=== PATIENT | female | born 1940 | race Caucasian/White ===

== ENCOUNTER 2025-03-21 05:30 | Inpatient (IN) | payer OTHER, SELFPAY ==
[2025-03-21] VITALS (15 sets, daily range): BP systolic 117–222; BP diastolic 50–96; PULSE 84–89; O2SAT 98; BMI 23.2; BMI 22.6
[2025-03-21 02:56] LABS: Hematocrit 29.0 % (37.0-47.0); Hemoglobin 8.7 g/dL (12.0-16.0); Mean Corp Hgb Conc. 30.0 g/dL (33.0-37.0); Mean Corpuscular Volume 65.5 fL (81.0-99.0); Nucleated Red Blood Cells % 0 %; Platelet Count 513 10^3/uL (130-400); Red Cell Dist. Width 20.2 % (11.5-14.5); Urine Character Clear (Clear)
[2025-03-21 03:11] LABS: Urine Red Blood Cell 0-2 /HPF (0-2); Urine Squamous Cell 0-2 /LPF (Few); Urine White Cell 0-2 /HPF (0-5)
[2025-03-21 03:18] LABS: ALT (SGPT) 18 U/L (0-35); AST (SGOT) 37 U/L (14-36); Albumin 4.5 g/dl (3.5-5.0); Alkaline Phosphatase 75 U/L (38-126); Blood Urea Nitrogen 20 mg/dl (7-17); Calcium 9.3 mg/dl (8.4-10.2); Carbon Dioxide 19 mmol/L (22-30); Chloride 100 mmol/L (98-107); Estimated Creatinine Clearance 60 ml/min; Glucose 111 mg/dl (70-99); Potassium 4.1 mmol/L (3.5-5.1); Sodium 131 mmol/L (135-145); Total Protein 8.0 g/dl (6.3-8.2); eGFR > 60.00
--- NOTE | 2025-03-21 03:38 | ED.GENMED ---
History of Present Illness
General
Chief Complaint: Musculo-Skeletal Complaint
Source: patient, family and ambulance crew
Exam Limitations: none
Time Seen by Provider: 03/21/25 02:18
Nursing documentation reviewed up to this point in time: agreed with
History of Present Illness
History of Present Illness:
84-year-old female with history of hypertension hyperlipidemia presents to the ER for evaluation of left hip pain. Patient reports that she had a minor fall 2 weeks ago and suffered a bruise to the left thigh. Initially had some pain but was able
to walk but has had progressively worse pain in the left hip to the point that she cannot bear weight and EMS was called to bring her to the hospital today. She denies any other injuries including denying specifically headache, neck pain, back pain
or pain in the upper extremities. She denies any other acute complaints.
Past History
Past History
ED Past Medical History: HTN and Hypercholesterolemia; Negative Asthma
ED Past Surgical History: None
Social History
Tobacco: Non-smoker
Alcohol: Occasional
Personal:
Living: with family
Employment: Retired
Review of Systems
Review of Systems
All Other Systems: ROS reviewed and negative except as documented in HPI and ROS
Constitutional: Denies fever
Respiratory: Denies trouble breathing
Cardiac: Denies chest pain
ABD/GI: Denies abdominal pain
: Denies flank pain
Musculoskeletal: Reports joint pain; Denies neck pain or back pain
Neurological: Denies dizzy or headache
Phy Exam
Physical Exam
Physical Exam:
General: Awake, alert, lying flat in bed appears mildly uncomfortable with movement
Head: Normocephalic, atraumatic
Eyes: Conjunctiva normal, pupils equal round reactive to light bilaterally
Throat: Airway intact, handling secretions
Neck: Trachea midline, no cervical spine tenderness
Back: No signs of trauma the back or flank, no tenderness in the thoracic or lumbar spine
Lungs: Clear to auscultation bilaterally, no wheezing, rales, rhonchi
Heart: Regular rate and rhythm, no murmurs, gallops, or rubs; no rib tenderness
Abd: Soft, non distended, nontender
Neuro: Grossly intact
Skin: Bruising to the left lateral thigh
Extremities: Patient has bruising to the left lateral thigh and tenderness over the greater trochanter; her left lower extremity shortened and externally rotated; strong distal pulses in the left lower extremity; rest of extremities appear
atraumatic; she has severe pain with any attempted range of motion of the left hip
Scores
Heart Failure Risk
Heart Failure Risk Score: Not Applicable
Heart Score for Chest Pain Patients
STEMI patient?: Not applicable
Withdrawal Assessment of Alcohol
Withdrawal Assessment Completed?: Not applicable
Course
Orders/Labs/Results
Orders:
Orders
03/21/25 02:13
CR Hip - LT w/wo Pel 2-3 Vw* Urgent
Comment:
Reason For Exam: left hip pain
Include a pelvis x-ray?: Yes
03/21/25 02:14
Electrocardiogram (*1) Urgent
Reason for Study: Hypertension, Benign
EKG- Treatment ONCE
03/21/25 02:46
Complete Blood Count/With Diff Urgent
Comprehensive Metabolic Panel Urgent
Urinalysis Reflex To Culture Urgent
Date Specimen was Collected: 03/21/25
Time Specimen was Collected: 02:43
Urine Microscopic Reflex Cult Urgent
03/21/25 03:40
Type+Screen Urgent
ORTHOPEDIC CONSULT Urgent
Consulting Provider: Kunal Vinson
Was physician already notified: Yes
B12 [Vitamin B12] Urgent
Ferritin Urgent
Folate Urgent
Iron Urgent
Reticulocyte Count Urgent
Total Iron Binding Urgent
03/21/25 03:47
Labetalol HCl [Trandate] 10 mg IV NOW STA
Morphine Sulfate 2 mg IV NOW STA
03/21/25 Breakfast
NPO
Allow oral meds: No
Allow clear liquids: No
Abnormal Lab Results
03/21/25
02:46
WBC 11.4 H 10^3/uL
(4.8-10.8)
Hgb 8.7 L g/dL
(12.0-16.0)
Hct 29.0 L %
(37.0-47.0)
MCV 65.5 L fL
(81.0-99.0)
MCH 19.6 L pg
(27.0-31.0)
MCHC 30.0 L g/dL
(33.0-37.0)
RDW 20.2 H %
(11.5-14.5)
Plt Count 513 H 10^3/uL
(130-400)
Absolute Neuts (auto) 9.0 H 10^3/uL
(1.4-6.5)
Absolute Lymphs (auto) 1.1 L 10^3/uL
(1.2-3.4)
Absolute Monos (auto) 1.2 H 10^3/uL
(0.1-0.6)
Neutrophils % 78.9 H %
(42.2-75.2)
Lymphocytes % 9.7 L %
(20.5-51.1)
Monocytes % 10.2 H %
(1.7-9.3)
Sodium 131 L mmol/L
(135-145)
Carbon Dioxide 19 L mmol/L
(22-30)
BUN 20 H mg/dl
(7-17)
Glucose 111 H mg/dl
(70-99)
AST 37 H U/L
(14-36)
Urine Ketones 2+ A
(Negative)
Ur Occult Blood Reflex 1+ A
(Negative)
Urine Albumin (Reflex) 2+ A
(Neg - Trace)
03/21/25 02:46
03/21/25 02:46
Vital Signs
Initial and Last Documented VS:
Initial Vital Signs
Temp Pulse Resp BP Pulse Ox
36.6 C 79 16 222/96 97
03/21/25 01:59 03/21/25 01:59 03/21/25 01:59 03/21/25 01:59 03/21/25 01:59
Last Documented Vital Signs
Temp Pulse Resp BP Pulse Ox
36.6 C 79 16 222/96 96
03/21/25 01:59 03/21/25 01:59 03/21/25 01:59 03/21/25 02:01 03/21/25 03:40
MDM/Problems Addressed
Differential Diagnosis Includes:
Fracture, contusion, dislocation, bursitis
MDM/Problems Addressed:
84-year-old female presents for evaluation of left hip pain as described above. Leg is shortened and externally rotated. No other injuries noted. She is hypertensive suspect from pain. Rest of vitals acceptable. Labs were sent off including a
CBC which shows anemia�possibly related to hematoma, denies GI bleeding. Added iron studies and reticulocyte count. Chemistry no clinically significant abnormalities. Urinalysis bland. Hip x-ray reviewed by me shows left hip fracture. Discussed
case with orthopedist will remain n.p.o. with plan for likely OR later today. Discussed case with hospitalist for admission.
Acute Exacerbation and/or Progression of Chronic Illness:
Acutely hypertensive likely at least in part pain related�treated pain and also given labetalol to treat hypertension
Acute Exacerbation and/or Progression of Chronic Illness: HTN
*Radiology
Radiology exam reviewed: preliminary read by ED provider
*Pulse Oximetry
SaO2: 96
Oxygen Mode of Delivery: Room air
Patient hypoxic: no (96%)
*EKG
Interpreted by ED Provider?: Yes
Heart Rate: 79
Rate: normal
Rhythm: sinus
Maiden: left axis deviation
Interval: normal interval
QRS Pattern: normal QRS
Ischemia: no ischemia
*Critical Care Note
Total Time (30-74mins, 75-104mins- exclusive of procedures): Not Applicable
Data Reviewed
Source: patient, records, family and ambulance crew
Patient Management
Discussion with other providers: Hospitalist (Discussed with hospitalist) and Jalousies Installer (Discussed with orthopedist)
Escalation/DeEscalation of care consider admission/obs:
Admission indicated
ED Attending Note
-
Portions of this chart may have been created with voice recognition software.� Occasional wrong word or��sound alike� substitutions may have occurred due to the inherent limitations of voice recognition software.
Discharge Plan
Departure
Patient Disposition: Admit
Date of Disposition: 03/21/25
Time of Disposition: 03:38
Admit to doctor: Brijesh
Presentation/result/management discussed w/ accepting MD/DO: Hospitalist
Discharge Problem:
Closed fracture of left hip, Anemia, Hypertension
Prescriptions:
No Action
atorvastatin 20 MG tablet
20 mg PO DAILY
amlodipine [Norvasc] 5 MG tablet
5 mg PO DAILY
valsartan 320 MG tablet
320 mg PO DAILY
hydrochlorothiazide 25 MG tablet
25 mg PO DAILY
Interventions
Interventions:
*Risk Screen - Suicide Last Done: 03/21/25 02:05
*General Assessment Last Done: 03/21/25 02:05
*Neglect/Abuse Screening Last Done: 03/21/25 02:05
*ED- Fall Risk Assessment Last Done: 03/21/25 02:05
*ED COVID-19 Vaccine History Last Done: 03/21/25 02:05
ED-Musculoskeletal Assessment Last Done: 03/21/25 02:08
Discharge Date and Time
Print Language: COOK ISLANDER
[2025-03-21] MEDS: TRANDATE 10 MG IV (04:11)
[2025-03-21] MEDS: MORPHINE SULFATE 2 MG IV ×2 (04:12→06:16)
--- NOTE | 2025-03-21 04:15 | HPS.HSE ---
Family Physician
-
Family Physician:
Chief Complaint
-
Left leg pain
History of Present Illness
This is a 84-year-old female with past medical history only notable for hypertension presenting to the emergency department especially HTN and worsening left leg pain. She was found to have hip fracture in the ED.
Patient reported that approximately over 2 weeks ago she had a slip and fall in the kitchen. She did landed on her sacrum. Initially she was able to get up without much pain or difficulty. However as time progressed she started noticing left hip
pain with mild radiation down the left leg. She denies any swelling. Daughter reported seeing a large bruise few weeks ago after a fall which has since resolved. Patient denies any numbness or tingling. She reports pain with any attempted
ambulation at this time.
According to daughter patient does not always take her blood pressure medications. She has had uncontrolled blood pressure for many years.
In the emergency department patient was hypertensive to 220s over 90, blood pressure was 79 respiratory was 16 we did temp of 98. ECG with normal sinus rhythm at a rate of 79 and unchanged from prior.
Hip x-ray shows a left femoral neck fracture nondisplaced.
CBC notable for hemoglobin of 8.7 with MCV of 65 and a normal blood count. Electrolytes BUN and creatinine were mostly stable except for a sodium of 131.
Medical History
Past Medical History
Past Medical History: Reports HTN and Hypercholesterolemia
Past Surgical History: Reports None
Social History
Tobacco: Former Smoker
Alcohol: Occasional
Drug: None
Personal:
Living: With Family
Family History
Family History: Not pertinent
Allergies / Home Medications
Allergies reflects when Allergies were last updated in [employer].
Home Medications with original date entered in [employer]
Allergy/Medication List:
Allergies
Allergy/AdvReac Type Severity Reaction Status Date / Time
No Known Allergies Allergy Unverified 04/21/14 15:15
Home Medications
amlodipine 5 mg tablet (Norvasc) 5 mg PO DAILY 06/26/16
atorvastatin 20 mg tablet 20 mg PO DAILY 06/26/16
valsartan 320 mg tablet 320 mg PO DAILY 06/26/16
Review of Systems
-
Constitutional: Reports No Symptoms
EENT: Reports No Symptoms
Respiratory: Reports No Symptoms
Cardiac: Reports No Symptoms
Abdomen/GI: Reports No Symptoms
: Reports No Symptoms
Musculoskeletal: Reports Joint Pain
Skin: Reports No Symptoms
Neurological: Reports No Symptoms
Endocrine: Reports No Symptoms
Hematologic/Lymphatic: Reports No Symptoms
Psych: Reports No Symptoms
Physical Exam
Vital Signs
Vital Signs
Temp Pulse Resp BP Pulse Ox
98 F 76 16 212/79 96
03/21/25 01:59 03/21/25 04:11 03/21/25 01:59 03/21/25 04:11 03/21/25 03:40
Physical Exam
General: Well Developed, Well Nourished and No Apparent Distress
HEENT: NormoCephalic, Moist mucous membranes and Atraumatic
Respiratory: Clear
Cardiac: S1/S2 and Regular Rhythm; No Murmur or Rub
GI: Soft, Non Tender, Non Distended and Normal Bowel Sounds; No Organomegaly
Rectal: Deferred by Provider
Genito-urinary: Deferred by me
Musculoskeletal: No Clubbing, No Cyanosis and No Edema
Skin: No Rash
Neuro: AO x 3 and Nonfocal/grossly intact
Psych: Calm
Laboratory Results
-
03/21/25 02:46
03/21/25 02:46
Laboratory Results
Total Bilirubin 1.0 mg/dl (0.2-1.3) 03/21/25 02:46
AST 37 U/L (14-36) H 03/21/25 02:46
ALT 18 U/L (0-35) 09/27/25 02:46
Alkaline Phosphatase 75 U/L (38-126) 03/21/25 02:46
Data Reviewed
-
Diagnostic Radiology: Image Personally Visualized and interpreted
Lab Data: Labs Reviewed by me
Old Records: Reviewed
Impression/Plan
-
IMPRESSION:
84 female with HTN presenting with left hip pain and found to have an occult left hip fracture (femoral neck). Likely due to a fall she had a few weeks earlier. She is hypertensive but otherwise stable. She is neurologically and vascularly
intact.
PLAN:
Hip fracture
- admit to telemetry
- pain control and antiemetics
- npo for now except meds
- no thinners,
- fracture b/s and retention protocol
- PT consult
- Surgery aware and patient to OR in am.
Uncontrolled HTN - although pain could be laying a role, daughter believes long standing uncontrolled bp 2/2 intermittent compliance
- will give her oral valsartan and norvasc early today
- prn hydralazine
Anemia - Microcytic anemia, Hgb 8.7, MCV 65. Likely chronic iron deficiency. Bruise near hematoma unlikely to explain degree of microcytic anemia.
- iron panel/ferritin ordered, retic
- type and screen as patient possibly may need post op transfusion
- folate/b12 ordered
DVT PPX - SCDs pending surgery
Code status - DNR
[2025-03-21] MEDS: DIOVAN 320 MG PO (04:50)
[2025-03-21 04:54] LABS: Reticulocyte Count 1.3 % (0.4-2.8)
[2025-03-21 05:22] LABS: Iron 29 ug/dl (37-170)
[2025-03-21 05:32] LABS: Total Iron Binding Capacity 434 ug/dl (265-497)
[2025-03-21 05:58] LABS: Ferritin 16.1 ng/ml (11.1-264.0)
[2025-03-21] MEDS: D5/0.9% SODIUM CHLORIDE 1000 IV (06:18)
[2025-03-21 06:30] LABS: Folate 11.0 ng/ml (2.76-20); Vitamin B12 655 pg/ml (239-931)
--- NOTE | 2025-03-21 08:00 | W.PN.UPDATE ---
Update Note
Progress Note Update
Full orthopedic consult dictated:
Patient needs left hip hemiarthroplasty so NPO, ance/txa synchronizer to OR
[2025-03-21 08:42] LABS: Hematocrit 24.4 % (37.0-47.0); Hemoglobin 7.4 g/dL (12.0-16.0)
[2025-03-21] MEDS: LIPITOR 20 MG PO (08:52)
[2025-03-21] MEDS: TYLENOL 650 MG PO ×3 (08:52→20:59)
--- NOTE | 2025-03-21 12:04 | W.PN.HOSP.TC ---
Today's Communication/Plan
-
NPO for OR
1 unit PRBC
Assessment / Plan
Assessment / Plan
IMPRESSION:
84 female with HTN presenting with left hip pain and found to have an occult left hip fracture (femoral neck). Likely due to a fall she had a few weeks earlier. She is hypertensive but otherwise stable. She is neurologically and vascularly
intact.
PLAN:
Hip fracture
- admit to telemetry
- pain control and antiemetics
- NPO for OR
- PT post op
- Asa 325 postop
Uncontrolled HTN - although pain could be laying a role, daughter believes long standing uncontrolled bp 2/2 intermittent compliance
- TRAILER TECHNICIAN Valsartan, Amlodipine
HLD - TRAILER TECHNICIAN Statin
Anemia -
- Hg 7.4 this AM
- 1 unit PRBC during OR
DVT PPX - SCDs pending surgery
Code status - DNR
Anticipated Discharge: 24 - 48 hours
Subjective/Interval History
-
Date of Service: March 21, 2025
seen before surgery
pain in hip
no chest pain or shortness of breath
Objective Data
-
Labs:
Laboratory Results
03/21/25 03/21/25
02:46 08:24
WBC 11.4 H
Hgb 8.7 L 7.4 L
Hct 29.0 L 24.4 L
Plt Count 513 H
Sodium 131 L
Potassium 4.1
Chloride 100
Carbon Dioxide 19 L
BUN 20 H
Creatinine 0.6
Glucose 111 H
Calcium 9.3
Total Bilirubin 1.0
AST 37 H
ALT 18
Alkaline Phosphatase 75
Vital Signs:
Vital Signs
Temp Pulse Resp BP Pulse Ox
98.1 F 79 16 173/66 100
03/21/25 11:48 03/21/25 11:48 03/21/25 11:48 03/21/25 11:48 03/21/25 08:00
Review of Systems
-
History Source: Patient
All other systems: Reviewed and negative
Physical Exam
-
General: No Apparent Distress
HEENT: PERRLA
Respiratory: Clear to Auscultation; Negative Wheezes
Cardiac: Regular Rhythm and S1/S2
GI: Soft and Nontender
Musculoskeletal: No Edema
Skin: Warm and Dry; Negative Rash
Neuro: AO x 3
Psych: Calm
Data Reviewed
-
Diagnostic Radiology: Report Reviewed by me
Labs: Labs Reviewed by me
[2025-03-21] MEDS: TYLENOL PO (13:19)
--- NOTE | 2025-03-21 14:52 | W.IMMPOSTOP ---
Surgical Immed Post Op Note
-
Primary Surgeon: Alisson
Assisting Surgeon: Jas Higgins PA-C
Pre-op Diagnosis: Left hip femoral neck fracture
Post-op Diagnosis: Same
Procedure Performed: Left hip femoral neck fracture
Anesthesia Type: General
Specimen / Cultures: None
Estimated Blood Loss: 20cc
Complications: None
Operative Findings: Dictated [id number]
Plan:
- WBAT
- ASA 325 for 30 days if there are no contraindications
- PT/ OT
[2025-03-21 15:05] LABS: Hemoglobin 8.2 g/dL (12.0-16.0)
[2025-03-21] MEDS: NSS 1000 IV (15:15)
--- NOTE | 2025-03-21 15:30 | PTCARENOTE ---
Pt received from the PACU via bed. Transport was w/o incident. Pt is AAOx3, HRR, lungs are clear/decreased. VSS, Pt is afebrile. Pt is in NSR on surveillance system monitor. Left hip with Antibacterial dressing intact, scant amount of bloody drainage noted. Pt
denies pain or nausea at this time. Pt instructed on plan of care. Pt and Pt's family verbalized understanding of instructions. Call denny is within reach.
[2025-03-21] MEDS: ASPIRIN 325 MG PO (18:07)
[2025-03-21] MEDS: BACTROBAN 2% OINTMENT 1 APPLIC NASAL (20:58)
[2025-03-21] MEDS: ANCEF 5 IV (20:58)
[2025-03-21] MEDS: COLACE 100 MG PO (20:59)
[2025-03-21] MEDS: SENOKOT 17.2 MG PO (20:59)
[2025-03-21] MEDS: ROXICODONE 5 MG PO (21:03)
[2025-03-22] VITALS (8 sets, daily range): BP systolic 126–168; BP diastolic 57–84; PULSE 91
[2025-03-22] MEDS: D5/0.9% SODIUM CHLORIDE IV (01:51)
[2025-03-22] MEDS: TYLENOL PO (01:51)
[2025-03-22] MEDS: ANCEF 5 IV (04:35)
[2025-03-22] MEDS: TYLENOL 650 MG PO ×5 (04:35→20:00)
--- NOTE | 2025-03-22 07:36 | W.PN.ORTHO ---
Today's Communication / Plan
-
PT/OT
Aspirin for DVT/mechanical devices for DVT prophylaxis
Weightbearing as tolerated with walker
Posterior hip precautions
Skin clips removal 2 weeks postop
Follow-up with orthopedics 1 month postop
long term facility once medically stable
Assessment
.
Distal Motor Intact: Yes
Dressing:
Clean, dry and intact.
Plan
.
Surgery / Date: L hip hemiarthroplasty 03/21 [place]
DVT Prophylaxis: Aspirin
Activity:
Out of bed.
PT/OT
Discharge Plan: SNF
Subjective
.
.:
Patient resting comfortably.
Vital Signs and Labs
.
Vital Signs and Labs:
Temp Pulse Resp BP Pulse Ox
98.7 F 88 20 165/78 95
03/22/25 03:00 03/22/25 03:00 03/22/25 03:00 03/22/25 03:00 03/22/25 03:00
Non-invasive Hgb result: 10.3
[2025-03-22 08:02] LABS: Hematocrit 24.8 % (37.0-47.0); Hemoglobin 7.5 g/dL (12.0-16.0); Mean Corp Hgb Conc. 30.2 g/dL (33.0-37.0); Mean Corpuscular Volume 68.3 fL (81.0-99.0); Red Cell Dist. Width 20.6 % (11.5-14.5)
[2025-03-22 08:24] LABS: Blood Urea Nitrogen 17 mg/dl (7-17); Calcium 8.3 mg/dl (8.4-10.2); Carbon Dioxide 23 mmol/L (22-30); Chloride 102 mmol/L (98-107); Estimated Creatinine Clearance 57 ml/min; Glucose 102 mg/dl (70-99); Magnesium 2.1 mg/dl (1.6-2.3); Potassium 3.6 mmol/L (3.5-5.1); Sodium 130 mmol/L (135-145); eGFR > 60.00
[2025-03-22 08:26] LABS: Platelet Count 324 10^3/uL (130-400)
--- NOTE | 2025-03-22 08:42 | W.PN.HOSP.TC ---
Today's Communication/Plan
-
IV iron
monitor CBC
likely SNF tomorrow
Assessment / Plan
Assessment / Plan
IMPRESSION:
84 female with HTN presenting with left hip pain and found to have an occult left hip fracture (femoral neck). Likely due to a fall she had a few weeks earlier. She is hypertensive but otherwise stable. She is neurologically and vascularly
intact.
PLAN:
Left hip femoral neck fracture
-s/p OR 03/21/25
-appreciate orthopedics
-Asa 325 for DVT PPx
-PT/OT, WBAT, SNF
-Skin clips removal 2 weeks postop
-Follow-up with orthopedics 1 month postop
Post-Op Anemia
Acute blood Loss anemia
-s/p 1 unit PRBC during OR
-Hg 7.5 this AM
-CLAUDIO - start IV Iron
-repeat CBC tomorrow
Essential HTN
- TAILERCPA Valsartan, Amlodipine
HLD - TAILERCPA Statin
Mild hyponatremia
-stop fluids
-fluid restriction
DVT PPX - ASa 325
Code status - DNR
Anticipated Discharge: 24 - 48 hours
Subjective/Interval History
-
Date of Service: March 22, 2025
Objective Data
-
Labs:
Laboratory Results
03/22/25
06:52
WBC 12.3 H
Hgb 7.5 L
Hct 24.8 L
Plt Count 324 D
Sodium 130 L
Potassium 3.6
Chloride 102
Carbon Dioxide 23
BUN 17
Creatinine 0.6
Glucose 102 H
Calcium 8.3 L
Vital Signs:
Vital Signs
Temp Pulse Resp BP Pulse Ox
98.3 F 91 16 168/73 95
03/22/25 07:30 03/22/25 07:30 03/22/25 07:30 03/22/25 07:30 03/22/25 07:30
I&O
03/21/25 03/22/25 03/23/25
06:59 06:59 06:59
Intake Total 2710 / 2710
Balance 2710 / 2710
[2025-03-22] MEDS: DIOVAN 320 MG PO (09:27)
[2025-03-22] MEDS: COLACE 100 MG PO ×2 (09:27→20:00)
[2025-03-22] MEDS: ASPIRIN 325 MG PO (09:27)
[2025-03-22] MEDS: LIPITOR 20 MG PO (09:27)
[2025-03-22] MEDS: SENOKOT 17.2 MG PO ×2 (09:28→20:00)
[2025-03-22] MEDS: NORVASC 5 MG PO (09:28)
[2025-03-22] MEDS: BACTROBAN 2% OINTMENT 1 APPLIC NASAL ×2 (09:28→20:00)
[2025-03-22] MEDS: ROXICODONE 5 MG PO ×2 (09:30→17:51)
--- NOTE | 2025-03-22 10:14 | CM ---
CM following re: discharge planning.
Reviewed pt's chart, met with pt and daughter Joyce at bedside.
Pt is an 84 year old female, admitted with primary dx of hip fx, POD#1 L hip hemiarthroplasty.
Pt reports she lives with 2SH, 1 step to enter, has 2 supportive children. 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 No DME, VN or SNF history. Pt stated this is her only hospitalization.
PT and OT evaluations noted - SNF level of care recommended. Both pt and her daughter Joyce are aware, expressed their agreement. A list of SNFs provided. Following SNFs preferred: [facility], [facility] SN[facility], [facility]. A referral to
above SNFs made. Awaiting for determination.
PCP: Casie Mariee
Pharmacy: [facility]
D/C plan: preferred SNF.
CM will follow to assist pt with discharge to a preferred SNF
[2025-03-22] MEDS: FERRLECIT 110 MG IV (13:10)
[2025-03-23] MEDS: TYLENOL 650 MG PO ×4 (00:10→12:50)
[2025-03-23 02:55] VITALS: BP 160/80
[2025-03-23 07:33] LABS: Hematocrit 24.5 % (37.0-47.0); Hemoglobin 7.7 g/dL (12.0-16.0); Mean Corp Hgb Conc. 31.4 g/dL (33.0-37.0); Mean Corpuscular Volume 68.4 fL (81.0-99.0); Platelet Count 343 10^3/uL (130-400); Red Cell Dist. Width 20.9 % (11.5-14.5)
[2025-03-23 07:45] VITALS: BP 164/68
[2025-03-23 08:04] LABS: Blood Urea Nitrogen 17 mg/dl (7-17); Calcium 8.0 mg/dl (8.4-10.2); Carbon Dioxide 23 mmol/L (22-30); Chloride 103 mmol/L (98-107); Estimated Creatinine Clearance 49 ml/min; Glucose 87 mg/dl (70-99); Potassium 3.6 mmol/L (3.5-5.1); Sodium 131 mmol/L (135-145); eGFR > 60.00
[2025-03-23] MEDS: COLACE 100 MG PO (08:20)
[2025-03-23] MEDS: SENOKOT 17.2 MG PO (08:20)
[2025-03-23] MEDS: ASPIRIN 325 MG PO (08:20)
[2025-03-23] MEDS: LIPITOR 20 MG PO (08:21)
[2025-03-23] MEDS: NORVASC 5 MG PO (08:21)
[2025-03-23] MEDS: DIOVAN 320 MG PO (08:22)
--- NOTE | 2025-03-23 09:33 | W.PN.ORTHO ---
Today's Communication / Plan
-
Appreciate the primary team, continue treatment
Dispo likely SNF, appreciate CM
Continue WBAT B/L LEs on walker
PT/OT, THPs x 6 weeks
ASA 325mg daily x 4 weeks for DVT ppx
Dressing to remain 7-10 days
Pain control, avoid narcotic delirium
Ninfa out 2 weeks (SNF or office)
If ninfa out at SNF outpatient Ortho follow-up in 4 weeks
Ortho to sign off for now, please reengage with any pertinent questions as necessary
Assessment
.
Distal Motor Intact: Yes
Dressing:
Clean, dry and intact. mild strikethrough, contained
Assessment:
POD#2 Left hip Michael
Overall doing/feeling well
Calf soft, nontender
Plan
.
Surgery / Date: Left Hip Michael Mar 19 ([place])
DVT Prophylaxis: Aspirin
Activity:
Out of bed. WBAT B/L LEs on walker
PT/OT, THPs x 6 weeks
Discharge Plan: SNF (appreciate CM) and Other
Subjective
.
.:
Patient resting comfortably. Pleasantly confused (possibly due to Oxy). No complaints re: Left hip
Vital Signs and Labs
.
Vital Signs and Labs:
Lab Results
03/23/25 06:31
03/23/25 06:31
Temp Pulse Resp BP Pulse Ox
99.5 F 85 16 134/38 96
03/23/25 07:45 03/23/25 08:21 03/23/25 07:45 03/23/25 08:21 03/23/25 07:45
Non-invasive Hgb result: 9.3
--- NOTE | 2025-03-23 09:59 | W.PN.HOSP.TC ---
Today's Communication/Plan
-
DC to SNF today
Assessment / Plan
Assessment / Plan
IMPRESSION:
84 female with HTN presenting with left hip pain and found to have an occult left hip fracture (femoral neck). Likely due to a fall she had a few weeks earlier. She is hypertensive but otherwise stable. She is neurologically and vascularly
intact.
PLAN:
Left hip femoral neck fracture
-s/p OR 03/21/25
-appreciate orthopedics
-Asa 325 for DVT PPx
-PT/OT, WBAT, SNF
-Skin clips removal 2 weeks postop
-Follow-up with orthopedics 1 month postop
Post-Op Anemia
Acute blood Loss anemia
-s/p 1 unit PRBC during OR
-Hg stable
-CLAUDIO - s/p IV iron, start iron pills
-repeat CBC one week
Essential HTN
- HEAD OPERATOR SULFIDE Valsartan, Amlodipine
HLD - HEAD OPERATOR SULFIDE Statin
Mild hyponatremia
-stop fluids
-fluid restriction
DVT PPX - ASa 325
Code status - DNR
Anticipated Discharge: Today
Subjective/Interval History
-
Date of Service: March 23, 2025
patient was confused this morning, now clear
Objective Data
-
Labs:
Laboratory Results
03/23/25
06:31
WBC 11.0 H
Hgb 7.7 L
Hct 24.5 L
Plt Count 343
Sodium 131 L
Potassium 3.6
Chloride 103
Carbon Dioxide 23
BUN 17
Creatinine 0.7
Glucose 87
Calcium 8.0 L
Vital Signs:
Vital Signs
Temp Pulse Resp BP Pulse Ox
99.5 F 85 16 134/38 96
03/23/25 07:45 03/23/25 08:21 03/23/25 07:45 03/23/25 08:21 03/23/25 07:45
I&O
03/22/25 03/23/25 03/24/25
06:59 06:59 06:59
Intake Total 2710 / 2710 720 / 720
Balance 2710 / 2710 720 / 720
Review of Systems
-
History Source: Patient
All other systems: Reviewed and negative
Physical Exam
-
General: No Apparent Distress
HEENT: PERRLA
Respiratory: Clear to Auscultation; Negative Wheezes
Cardiac: Regular Rhythm and S1/S2
GI: Soft and Nontender
Musculoskeletal: No Edema
Skin: Warm and Dry; Negative Rash
Neuro: AO x 3
Psych: Calm
Data Reviewed
-
Diagnostic Radiology: Report Reviewed by me
Labs: Labs Reviewed by me
--- NOTE | 2025-03-23 10:11 | W.DS.TRANS ---
DC Summary - Stain Sprayer
-
Discharge Instructions:
Discharge Diagnosis/Procedures left hip femoral neck fracture status post OR
Diet Regular
Activity As tolerated
Additional Activity WBAT
Driving Restrictions No driving
Bathing Restrictions None
Blood Work CBC in one week
Other Services PT,OT
Instructions:
Stand-Alone Forms:
Changes to Home Medications: Yes
Discharge Medications:
DC Medications w/original date entered in [employer]
amlodipine 5 mg tablet (Norvasc) 5 mg PO DAILY 06/26/16
atorvastatin 20 mg tablet 20 mg PO DAILY 06/26/16
valsartan 320 mg tablet 320 mg PO DAILY 06/26/16
acetaminophen 325 mg tablet 650 mg (2 x 325 mg) PO Q4H PRN mild pain #30 tabs 03/23/25
aspirin 325 mg tablet 325 mg PO DAILY #28 tabs 03/23/25
ferrous sulfate 325 mg (65 mg iron) tablet (Feosol) 325 mg PO Q OTHER DAY #30 tabs 03/23/25
oxycodone 5 mg tablet 5 mg PO Q4HPRN PRN moderate/severe pain #15 tabs 03/23/25
polyethylene glycol 3350 17 gram oral powder packet (Miralax) 17 g PO DAILY #30 ea 03/23/25
Home Medication Changes
Take Tylenol as needed for mild pain, Oxycodone for moderate or severe pain
You are started on Iron pills for anemia, your labs will be rechecked in one week. Start taking every other day, can increase to daily if tolerate
Take Miralax daily to prevent constipation
Take Aspirin 325mg daily x 4 weeks to prevent blood clots
Pending Results: No
[2025-03-23 10:15] VITALS: BP 132/70; PULSE 98; O2SAT 99
[2025-03-23 10:16] VITALS: BP 132/70; PULSE 97; O2SAT 99
--- NOTE | 2025-03-23 10:48 | CM ---
Addendum entered by Shannan Chew 03/23/25 12:50:
Auth confirmed with [employer] via phone; auth [id number] 03/23/25-03/27/25 next review date [phone]. Ambulance auth is [id number] with [facility], plan for transfer at 16:30. CM will call to patient family to review IMM form. Patient for transfer to
SNF today.
Original Note:
Patient seen at bedside on . Following conversations with physician, nursing and patient spouse, daughter. CM called to Insurance to request auth. Patient accepted Bed at [facility]. CM will confirm ability to transfer when auth complete.
Patient will need report to be called to [phone]/fax report to [phone].
Plan; transfer to SNF when auth in place'
NPI Dr. Piña [id number]
NPI [facility] [id number]
[2025-03-23 11:33] VITALS: BP 130/73
[2025-03-23 11:46] LABS: COVID-19 Antigen Negative (Negative)
--- NOTE | 2025-03-23 12:07 | W.DCSUMMARY ---
Discharge Summary
Discharge Data
Date of Admission: 03/21/25
Date of Discharge: 03/23/25
-
Pending Results: No
Hospital Course
Discharging Physician : Dr. Kayce Kwok
Disposition : SNF
Primary care physician : Dr. Casie Mariee
Principal Discharge diagnosis : Left Hip Fracture s/p OR 03/21/25
Hospital Course :
Ms. Lela Burgos is a 84 yo woman with hx essential HTN status post fall 2 weeks ago presents to the ER with worsening left hip pain. Triage vitals significant for hypertension with SBP 220's. Hip X-Ray with left femoral neck fracture. Hg 8.7.
Patient was admitted to medicine with orthopedics consulting and she underwent surgery on 03/21/25. She did well post-op. She worked with PT and plan is for DC to SNF. She will follow up with Dr. Vinson in 2-4 weeks.
Blood pressures improved with pain control and she is kept on her home regimen at discharge.
Patient received 1 unit PRBC intra-op with stable Hg over past 24 hours on day of discharge. She received 1 dose IV iron, prescribed iron pills with plans for repeat CBC next week.
Patient had transient hospital acquired delirium morning of discharge that has resolved.
Time spent on discharge was 35 minutes.
Important imaging findings :
HIP X-RAY
IMPRESSION:
Postoperative left hip hemiarthroplasty.
Procedure findings :
Discharge Plan
-
Patient Disposition: Usp/SNF
Discharge Diagnosis/Procedures: left hip femoral neck fracture status post OR 03/21/25
Diet: Regular
Activity: As tolerated
Additional Activity: WBAT
Driving Restrictions: No driving
Bathing Restrictions: None
Blood Work: CBC in one week
Other Services: PT and OT
Activity Restrictions/Additional Instructions:
Lane out in 2 weeks (at SNF or office). If ninfa out at SNF then follow up with Ortho in 4 weeks (otherwise at 2 week lilli for staple removal)
Referrals:
Casie Mariee MD [Family Provider, Internal Medicine] - in less than 1 week
Kunal Vinson MD [Active, Orthopedics] - in two to four weeks
Additional Discharge Medication Instructions: Take Tylenol as needed for mild pain, Oxycodone for moderate or severe pain
You are started on Iron pills for anemia, your labs will be rechecked in one week. Start taking every other day, can increase to daily if tolerate
Take Miralax daily to prevent constipation
Take Aspirin 325mg daily x 4 weeks to prevent blood clots
Prescriptions:
New
aspirin 325 mg Tablet
325 mg PO DAILY Qty: 28 0RF
oxycodone 5 mg Tablet
5 mg PO Q4HPRN PRN (Reason: moderate/severe pain) Qty: 15 0RF
acetaminophen 325 mg Tablet
650 mg PO Q4H PRN (Reason: mild pain) Qty: 30 0RF
polyethylene glycol 3350 [Miralax] 17 gram powder in packet
17 g PO DAILY Qty: 30 0RF
ferrous sulfate [Feosol] 325 mg (65 mg iron) tablet
325 mg PO Q OTHER DAY Qty: 30 0RF
Continued
atorvastatin 20 MG tablet
20 mg PO DAILY
amlodipine [Norvasc] 5 MG tablet
5 mg PO DAILY
valsartan 320 MG tablet
320 mg PO DAILY
Discharge Orders:
Discharge Patient (As Directed); Ordered 03/23/25
Ordered By: Kayce Kwok
Discharge Date and Time
Print Language: OCCITAN
[2025-03-23] MEDS: FERRLECIT 110 MG IV (14:50)
[2025-03-23 15:45] VITALS: BP 141/63
== END 2025-03-23 16:45 | DRG 522 ==
LOC: 2 SOUTH 05:30
PROVIDERS: Physician Assistant Surgical; ADMITTING PHYSICIAN Internal Medicine; ATTENDING PHYSICIAN Student in an Organized Health Care Education/Training Program; CONSULT PHYSICIAN Orthopaedic Surgery; EMERGENCY PHYSICIAN Emergency Medicine; FAMILY PHYSICIAN Internal Medicine
PROC: 30233N1 Transfusion of Nonautologous Red Blood Cells into Peripheral Vein, Percutaneous Approach (ICD-10-PCS; 2025-03-21)
PROC: 0SRS0J9 Replacement of Left Hip Joint, Femoral Surface with Synthetic Substitute, Cemented, Open Approach (ICD-10-PCS; 2025-03-21)
DX: S72.002A Fracture of unspecified part of neck of left femur, initial encounter for closed fracture (principal); D62 Acute posthemorrhagic anemia; E87.1 Hypo-osmolality and hyponatremia; I10 Essential (primary) hypertension; W01.0XXA Fall on same level from slipping, tripping and stumbling without subsequent striking against object, initial encounter; Z66 Do not resuscitate; D50.9 Iron deficiency anemia, unspecified; E78.00 Pure hypercholesterolemia, unspecified; Z87.891 Personal history of nicotine dependence
CPT/HCPCS: 73502; 80048; 80053; 81003; 81015; 82607; 82728; 82746; 83540; 83550; 83735; 85014; 85018; 85025; 85027; 85045; 86850; 86900; 86901; 86920; 87811; 93005; 96374; 96375; 97110; 97116; 97162; 97166; 97530; 97535; 99285; C1713; C1776; J2916; P9016

== ENCOUNTER 2025-04-21 12:22 | Emergency (ER) | payer OTHER, SELFPAY ==
[2025-04-21] VITALS (17 sets, daily range): BP systolic 124–156; BP diastolic 63–97
--- NOTE | 2025-04-21 12:55 | ED.MUSCINJ ---
HPI-Injury
<Zafar Osuna PA-C - Last Filed: 04/21/25 15:49>
General
Chief Complaint: Musculo-Skeletal Complaint
Source: patient
Exam Limitations: none
Time Seen by Provider: 04/21/25 12:49
History of Present Illness-Injury
Initial Injury comments:
84-year-old female sent in from orthopedic office after she was noted to have a dislocated left hemiarthroplasty. She had a fracture left hip about a month ago and this was repaired with a hemiarthroplasty. She went for a follow-up visit today and
was noted to have a dislocation. She does not recall specific injury that did this but she notes increased pain over the past day or 2. No other complaints at this time
Past History
<Zafar Osuna PA-C - Last Filed: 04/21/25 15:49>
Past History
ED Past Medical History: HTN and Hypercholesterolemia; Negative Asthma
ED Past Surgical History: None
Social History
Tobacco: Non-smoker
Alcohol: Occasional
Personal:
Living: with family
Employment: Retired
Phy Exam
<Zafar Osuna PA-C - Last Filed: 04/21/25 15:49>
Physical Exam
Physical Exam:
General: Well-appearing female in no acute respiratory distress
HEENT: Normal cephalic atraumatic
Musculoskeletal exam: Left leg is slightly shortened with pain with rotation
Skin is intact
Heart: Regular rate and rhythm lungs: Clear no wheeze
Injury Course
<Zafar Osuna PA-C - Last Filed: 04/21/25 15:49>
Orders/Labs/Results
Orders:
Orders
04/21/25 12:32
CR Hip - LT w/wo Pel 2-3 Vw* Urgent
Comment:
Reason For Exam: r/o disolcation
Include a pelvis x-ray?: Yes
04/21/25 13:42
Propofol 1,000,000 Mcg/100 ml [Diprivan] 1,000,000 mcg in 100 ml .ROUTE .STK-MED
04/21/25 13:43
Propofol [Diprivan] 20 ml .ROUTE .STK-MED
04/21/25 14:12
CR Hip - LT without Pel 1 Vw Stat
Comment: portable
Reason For Exam: post reduction
<Osei Richards MD - Last Filed: 04/21/25 14:16>
Orders/Labs/Results
Orders:
Orders
04/21/25 12:32
CR Hip - LT w/wo Pel 2-3 Vw* Urgent
Comment:
Reason For Exam: r/o disolcation
Include a pelvis x-ray?: Yes
04/21/25 13:42
Propofol 1,000,000 Mcg/100 ml [Diprivan] 1,000,000 mcg in 100 ml .ROUTE .STK-MED
04/21/25 13:43
Propofol [Diprivan] 20 ml .ROUTE .STK-MED
04/21/25 14:12
CR Hip - LT without Pel 1 Vw Stat
Comment: portable
Reason For Exam: post reduction
Procedures
<Zafar Osuna PA-C - Last Filed: 04/21/25 15:49>
Moderate Sedation
ASA Risk Score: Class II
Chart and allergies reviewed: Yes
Consent for anesthesia obtained: Yes
Time out completed (validating right patient & procedure): Yes
Moderate Sedation Start Time(when first medication is given): 14:07
History of difficult intubation: No
Airway free of obstruction: Yes
Patient has a gag reflex: Yes
Patient is able to open mouth: Yes
Patient has no dentures: Yes
Patient has no loose teeth: Yes
Medication administered by Provider during Moderate Sedation: IV Propofol (mg)
Total dose administered: 70
Time drug administered: 14:07
Moderate Sedation Procedure End Time: 14:08
<Zafar Osuna PA-C - Last Filed: 04/21/25 15:49>
MDM/Problems Addressed
Differential Diagnosis Includes:
Patient sent in from the orthopedic office for dislocated left hemiarthroplasty.
<Zafar Osuna PA-C - Last Filed: 04/21/25 15:49>
*Pulse Oximetry
SaO2: 100
Oxygen Mode of Delivery: Room air
Patient hypoxic: no
*Critical Care Note
Total Time (30-74mins, 75-104mins- exclusive of procedures): Not Applicable
<Zafar Osuna PA-C - Last Filed: 04/21/25 15:49>
Update Note
Update Note:
Initial x-rays did confirm dislocated left hemiarthroplasty. Written consent obtained from the patient but with the daughter and the in the room for moderate sedation and reduction of the left hip. Sedation performed by emergency room
attending. 70 mg of propofol were required. The hip was reduced with hip flexion and longitudinal traction with internal rotation. Postreduction films demonstrated successful reduction. Knee immobilizer applied. Will discharge with follow-up
with orthopedics
ED Attending Note
<Zafar Osuna PA-C - Last Filed: 04/21/25 15:49>
-
Portions of this chart may have been created with voice recognition software.� Occasional wrong word or��sound alike� substitutions may have occurred due to the inherent limitations of voice recognition software.
<Osei Richards MD - Last Filed: 04/21/25 14:16>
ED Attending Note
Patient seen and examined by attending physician: Yes
I performed the substantive portion of visit, reviewed & personally made and approve the management plan that is documented in note by myself or CHRISTI.: Yes
ED Attending Note:
I have seen and evaluated the patient with a [id number] encounter. I have spoken to the [CHRISTI] and involved in the medical history, the physical exam, medical decision making.
Evaluation and management service: agree unless noted differently below.
Results interpretation: agree unless noted differently below.
84-year-old woman with recent hemiarthroplasty presenting to the emergency department dislocated hip. Per patient and orthopedic PA patient's hip likely was dislocated 2 weeks ago during physical therapy. On arrival patient's left hip is shortened
and rotated. Distal pulses intact. Normal sensation. X-ray per my interpretation with dislocated left hip. Hip was reduced with propofol without any complications. Please see procedure note above.
Discharge Plan
Departure
Patient Disposition: Home (Routine Discharge)
Date of Disposition: 04/21/25
Time of Disposition: 15:47
Patient with high blood pressure during this ER visit?: No
Discharge Problem:
Dislocation of internal left hip prosthesis
Instructions: Muscle and Bone Pain (DC), MODERATE SEDATION ADULT
Prescriptions:
No Action
atorvastatin 20 MG tablet
20 mg PO DAILY
amlodipine [Norvasc] 5 MG tablet
5 mg PO DAILY
valsartan 320 MG tablet
320 mg PO DAILY
aspirin 325 mg Tablet
325 mg PO DAILY Qty: 28 0RF
oxycodone 5 mg Tablet
5 mg PO Q4HPRN PRN (Reason: moderate/severe pain) Qty: 15 0RF
acetaminophen 325 mg Tablet
650 mg PO Q4H PRN (Reason: mild pain) Qty: 30 0RF
polyethylene glycol 3350 [Miralax] 17 gram powder in packet
17 g PO DAILY Qty: 30 0RF
ferrous sulfate [Feosol] 325 mg (65 mg iron) tablet
325 mg PO Q OTHER DAY Qty: 30 0RF
Referrals:
Casie Mariee MD [Family Provider, Internal Medicine]
Activity Restrictions/Additional Instructions:
Use knee brace when ambulating. Follow-up with orthopedics. Return if worse otherwise
Interventions
Interventions:
*Risk Screen - Suicide Last Done: 04/21/25 12:25
*General Assessment Last Done: 04/21/25 12:25
*Neglect/Abuse Screening Last Done: 04/21/25 12:25
*ED- Fall Risk Assessment Last Done: 04/21/25 13:11
*ED COVID-19 Vaccine History Last Done: 04/21/25 13:11
*ED Influenza Vaccine History Last Done: 04/21/25 13:11
ED-Musculoskeletal Assessment Last Done: 04/21/25 13:10
Discharge Date and Time
Print Language: PORTUGUESE
== END 2025-04-21 16:06 | disposition home or self-care (01) ==
LOC: EMR 12:22
PROVIDERS: EMERGENCY PHYSICIAN Student in an Organized Health Care Education/Training Program; FAMILY PHYSICIAN Internal Medicine
DX: T84.021A Dislocation of internal left hip prosthesis, initial encounter (principal); Y79.2 Prosthetic and other implants, materials and accessory orthopedic devices associated with adverse incidents; I10 Essential (primary) hypertension; E78.00 Pure hypercholesterolemia, unspecified
CPT/HCPCS: 99285; 27265; 73501; 73502

== ENCOUNTER 2025-04-23 13:00 | Emergency (ER) | payer OTHER, SELFPAY ==
[2025-04-23 13:06] VITALS: BP 152/72
--- NOTE | 2025-04-23 14:03 | ED.GENMED ---
History of Present Illness
General
Chief Complaint: Musculo-Skeletal Complaint
Source: patient
Exam Limitations: none
Time Seen by Provider: 04/23/25 13:41
Nursing documentation reviewed up to this point in time: agreed with
History of Present Illness
History of Present Illness:
Patient is a 4-year-old female status post left hip fracture status post left total hip replacement March 21 presents to the ER for evaluation of left hip discomfort. Patient was seen 2 days ago April 21 for dislocation of this hip. Patient
presents awake alert she reports she slid down the steps when this happened. Family at bedside reports patient does have dementia and she has 24-hour caregivers and they are not aware of any fall or injury. They do report she is confused unable to
give good history.
Past History
Past History
ED Past Medical History: HTN and Hypercholesterolemia; Negative Asthma
ED Past Surgical History: None
Social History
Tobacco: Non-smoker
Alcohol: Occasional
Personal:
Living: with family
Employment: Retired
Phy Exam
General Physical Exam
General Presentation: no apparent distress
General age: appears stated age
General Skin: warm and dry
General Habitus: normal
General Mental: alert
General Hydration: appears well hydrated
Cardiovascular Exam
Cardiovascular Exam: regular rate/rhythm, no murmur and normal peripheral pulses
Pulmonary Exam
Pulmonary Exam: lungs clear and no respiratory distress
Neurological Exam
Neurological Exam: alert and oriented x3
Musculoskeletal Exam
Musculoskeletal Exam: other (dec ROM to left leg leg appears shorter )
Skin Exam
Skin Exam: normal color and warm/dry
Psychiatric Exam
Psychiatric Exam: normal mood/affect
Course
Orders/Labs/Results
Orders:
Orders
04/23/25 13:29
Hip, Left 2-3 Views [CR Hip - LT w/wo Pel 2-3 Vw*] Urgent
Comment: hx of dislocation
Reason For Exam: pain
Include a pelvis x-ray?: Yes
04/23/25 15:39
CT Lower Ext W/o Iv Cont Lt Urgent
Comment:
Reason For Exam: hip dislocation
04/23/25 16:01
CRP [C-Reactive Protein] Urgent
Sed Rate [Erythrocyte Sed Rate] Urgent
Abnormal Lab Results
04/23/25
16:01
ESR 53 H mm/hour
(0-20)
C-Reactive Protein 33.50 H mg/L
(0.0-10.00)
Vital Signs
Initial and Last Documented VS:
Initial Vital Signs
Temp Pulse Resp BP Pulse Ox
98.3 F 73 18 152/72 99
04/23/25 13:06 04/23/25 13:06 04/23/25 13:06 04/23/25 13:06 04/23/25 13:06
Last Documented Vital Signs
Temp Pulse Resp BP Pulse Ox
98.3 F 80 20 132/72 98
04/23/25 13:06 04/23/25 17:14 04/23/25 17:14 04/23/25 17:06 04/23/25 17:07
MDM/Problems Addressed
Differential Diagnosis Includes:
Not limited to hip dislocation, fracture
MDM/Problems Addressed:
Patient is an 84-year-old female who is presenting for second hip dislocation since initial surgery March 23. She does have dementia and has 24-hour care they are not aware of patient has injuring herself or fallen. She initially reported she
slid down steps however family does not feel that this happened ( with dementia history unreliable) . Case d/c w/ with orthopedics who came to bedside and evaluated patient. Dr. Funes spoke to family at length about options for care/treatment,
family would like to take the patient home and discuss additional options. She has walker/wheelchair at home. They will discuss Dr. Funes's options as a family and follow-up with him in the office.
CAT scan and blood work ordered upon ortho request.
Chronic conditions affecting care:
Dementia recent hip surgery
*Radiology
Radiology exam reviewed: radiology read reviewed
*Pulse Oximetry
SaO2: 99
Oxygen Mode of Delivery: Room air
Patient hypoxic: no
*Critical Care Note
Total Time (30-74mins, 75-104mins- exclusive of procedures): Not Applicable
ED Attending Note
-
Portions of this chart may have been created with voice recognition software.� Occasional wrong word or��sound alike� substitutions may have occurred due to the inherent limitations of voice recognition software.
Discharge Plan
Departure
Patient Disposition: Home (Routine Discharge)
Date of Disposition: 04/23/25
Time of Disposition: 17:56
Patient with high blood pressure during this ER visit?: Yes
Condition: Fair
Covid-19: Not Applicable
Discharge Problem:
Dislocation of hip
Instructions: Hip Dislocation (DC), BLOOD PRESSURE
Prescriptions:
No Action
atorvastatin 20 MG tablet
20 mg PO DAILY
amlodipine [Norvasc] 5 MG tablet
5 mg PO DAILY
valsartan 320 MG tablet
320 mg PO DAILY
aspirin 325 mg Tablet
325 mg PO DAILY Qty: 28 0RF
oxycodone 5 mg Tablet
5 mg PO Q4HPRN PRN (Reason: moderate/severe pain) Qty: 15 0RF
acetaminophen 325 mg Tablet
650 mg PO Q4H PRN (Reason: mild pain) Qty: 30 0RF
polyethylene glycol 3350 [Miralax] 17 gram powder in packet
17 g PO DAILY Qty: 30 0RF
ferrous sulfate [Feosol] 325 mg (65 mg iron) tablet
325 mg PO Q OTHER DAY Qty: 30 0RF
Referrals:
Casie Mariee MD [Family Provider, Internal Medicine]
Jarrett Funes MD [Active, Orthopedics]
Activity Restrictions/Additional Instructions:
As discussed please follow-up with orthopedics. Use wheelchair /walker at home. Return if any worsening of symptoms.
Interventions
Interventions:
*Risk Screen - Suicide Last Done: 04/23/25 13:06
*General Assessment Last Done: 04/23/25 13:06
*Neglect/Abuse Screening Last Done: 04/23/25 13:06
*ED- Fall Risk Assessment Last Done: 04/23/25 13:21
*ED COVID-19 Vaccine History Last Done: 04/23/25 13:21
*ED Influenza Vaccine History Last Done: 04/23/25 13:21
ED-Musculoskeletal Assessment Last Done: 04/23/25 13:18
Discharge Date and Time
Print Language: BOLIVIAN
[2025-04-23 14:53] VITALS: BP 135/61
[2025-04-23 16:44] LABS: C-Reactive Protein 33.50 mg/L (0.0-10.00)
[2025-04-23 17:06] VITALS: BP 132/72
--- NOTE | 2025-04-23 17:17 | CON.MD ---
Consultation - Medical
-
Pt is an 84 year old known to us for left hip hemiarthroplasty done by Dr. Vinson in late february. About 1 week ago it was found to be dislocated for an indeterminant amount of time and pt was referred to ER for relocation. Now she returns
the the ER with minimal symptoms of only slight discomfort and repeat xray is demonstrative of recurrent dislocation.
LLE exam shows LLE shortened and internally rotated the left hip incision is CDI and the pt is able to dorsiflex her left ankle. She has moderate confusion and memory loss.
Pt's son and daughter and son's GF were present while we discussed multiple options. #1 live with it dislocated. I didn't think another relocation would be successful, pt with memory loss and doesn't recall how it might have dislocated again and
she cant follow hip precautions. Mobility with it dislocated would be impaired but it spares her a surgery. #2 [place] or resection arthroplasty. Less invasive surgery option up front and she would hopefully ultimately be able to get around
on it possibly with a shoe lift. #3 revision surgery. THis would be most invasive but may, if successful, offer her the chance for renewed mobility. But it would have a high risk of complication including recurrent instability and such
instability might be more morbid if it were a total hip rather than hemiarthoplasty.
Pt was strongly in favor of option 1 but with her mild-mod memory loss I urged her to seek the certified alcohol counselor of her family. Will be available to help enact whichever plan they ultimately decide on. sed/crp and CT scan in the event surgery is their
preference.
Consultation
-
Date/Time Consultation Requested: today 3p
Date/Time Consultation Performed: today 4p
Requesting Provider: martha johnson
Performing Provider: kacie bloom
Reason for Consultation: left hip dislocation
== END 2025-04-23 18:35 | disposition home or self-care (01) ==
LOC: EMR 13:00
PROVIDERS: Nurse Practitioner; EMERGENCY PHYSICIAN Emergency Medicine; FAMILY PHYSICIAN Internal Medicine
DX: T84.021A Dislocation of internal left hip prosthesis, initial encounter (principal); Y79.2 Prosthetic and other implants, materials and accessory orthopedic devices associated with adverse incidents; I10 Essential (primary) hypertension; E78.00 Pure hypercholesterolemia, unspecified; F03.90 Unspecified dementia, unspecified severity, without behavioral disturbance, psychotic disturbance, mood disturbance, and anxiety
CPT/HCPCS: 99284; 73502; 73700; 85652; 86140